=== PATIENT | male | born 1935 | race Caucasian/White ===

== ENCOUNTER → 2016-11-16 | Outpatient (CLI) | payer MEDICARE, OTHER ==
[~2016-11-16] MED LIST: ASPI81CH CHEW
[2016-11-16 11:16] LABS: HEMATOCRIT 39.8 % (39.0-51.0); MEAN CELL VOLUME 91.5 FL (80.0-100.0); MEAN CORPUSCULAR HGB CONC 34.9 % (32.0-36.0); PLATELET COUNT 136 TH/MM3 (150-450); RED BLOOD COUNT 4.35 MIL/MM3 (4.50-5.90); REVIEW FLAG FINAL; WHITE BLOOD COUNT 6.2 TH/MM3 (4.0-11.0)
--- NOTE | 2016-11-17 22:23 | EKG ---
Date Performed: 11/16/2016 Time Performed: 11:02:14 PTAGE: 81 years EKG: Sinus rhythm . ST junctional depression is nonspecific Since previous tracing, no significant change noted Borderl ine ECG PREVIOUS TRACING : 04/06/2013 11.22 DOCTOR: Kathi Blue Interpretating Date/Time 11/17/2016 22:20:05
== END ==
LOC: PHPRE 10:11
PROVIDERS: ATTEND Ophthalmology
DX: Z01.810 Encounter for preprocedural cardiovascular examination (principal); Z01.812 Encounter for preprocedural laboratory examination; H25.811 Combined forms of age-related cataract, right eye; R94.31 Abnormal electrocardiogram [ECG] [EKG]
CPT/HCPCS: 36415; 85027; 93005

== ENCOUNTER → 2016-12-07 | Day surgery (SDC) | payer MEDICARE, OTHER ==
--- NOTE | 2016-11-26 17:17 | MH ---
Cc: DESTINY THAKUR DATE OF ADMISSION: 12/07/2016 ADMISSION DIAGNOSIS Cataract right eye. HISTORY OF PRESENT ILLNESS This 81-year-old white male is coming through [facility] for the purpose of a lens extraction of the right eye with intraocular lens implant under local anesthesia. He has noticed decreasing visual acuity interfering with his daily activities and elected to have the above procedure. His best corrected visual acuity in room light is less than 2200 in the right eye and 20/70 -1 in the left. PAST MEDICAL HISTORY Patient denies hypertension, diabetes or other medical illness. PAST SURGICAL HISTORY: Surgical procedures in the past include colon cancer surgery and bladder cancer surgery. DAILY MEDICATIONS medications include low-dose Aspirin. ALLERGIES NO KNOWN DRUG ALLERGIES SOCIAL HISTORY The patient quit smoking in 1974 but had smoked a half-a-pack per day for 20 years and has two alcoholic beverages a day. FAMILY HISTORY: Family history is positive for mother and brother with glaucoma and cataract. REVIEW OF SYSTEMS: HEAD: Patient denies severe headaches, dizziness or recent head injury. EARS: Patient denies hearing loss, ear pain, discharge or ringing in the ears. NOSE: Patient denies nasal discharge, obstruction or frequent colds. MOUTH AND THROAT: Patient denies soreness of the mouth or tongue, bleeding gums, trouble swallowing, changes in voice or sore throat. NECK: Patient denies neck pain or swelling, limitation of neck movement or neck injury. CARDIOPULMONARY SYSTEM: Patient denies shortness of breath, orthopnea, chronic cough, sputum production, hemoptysis, chest pain, wheezing, palpitations or light-headedness. GI SYSTEM: Patient denies poor appetite, nausea, vomiting, abdominal pain, ulcers, hemorrhoids or change in bowel habits. SYSTEM: The patient has no bladder, has a bag for collection of urine. NERVOUS SYSTEM: Patient denies convulsions, vertigo, stroke, numbness or weakness. PHYSICAL EXAMINATION VITAL SIGNS: Blood pressure is 140/88, pulse 84, respirations 20. HEAD, EYES, EARS, NOSE, AND THROAT: Head: Normocephalic, atraumatic. Nose: Without rhinorrhea. Throat clear. NECK: Supple. CHEST: Clear. HEART: Regular rhythm. ABDOMEN: Without tenderness. EXTREMITIES: Without edema. NEUROLOGIC: Within normal limits. PSYCHIATRIC: Mental status within normal limits. OCULAR EXAMINATION The patient's best corrected visual acuity is passed 20 over the last and 20/200 in the right eye and 20/70 -1 in the left eye in room light. Visual rae are full to confrontation testing. Extraocular muscle exam reveals full versions with orthophoria at distance and near. Pupils are 1 mm equal, round, reactive to light without afferent defect. Anterior segment examination reveals nuclear sclerotic and cortical cataracts bilaterally. Intraocular pressure is 16 in the right eye and 17 in the left by applanation tonometry. Dilated fundus exam revealed sharp disk with cup-to-disk ratio of 0.3 bilaterally. The macula has occasional drusen present. A posterior vitreous detachment is present bilaterally. There are myelinated fibers at the inferior pole of the optic nerve IMPRESSION 1. Bilateral cataracts. 2. Posterior vitreous detachment both eyes. 3. 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 PLAN: The plan is lens extraction of the right eye with intraocular lens implant under local anesthesia through [facility]. Iris retractors will be used in this patient whose pupil does not dilate well. The patient has been cleared medically. He has been counseled as to the risks, benefits and alternatives and elected to proceed. I feel that cataract surgery will improve the quality of life and activities of daily living in this patient. MD CHRISTINA Neumann/tomer /4:22 PM /4:34 PM
[~2016-12-07] VITALS: Ht 180.3 cm; Wt 86.5 kg
[~2016-12-07] MED LIST changes: +ACETYLCHOLINE CHL OPHT SOLN 1:100 2 ML VIAL ONE; +CYCLOPENTOLATE HCL 1% OPHT SOLN 2 ML BTL ONE; +DICLOFENAC SOD 0.1% OPHT SOLN 2.5 ML BTL ONE; +EPINEPHrine HCL (1:1000) 1 MG/ML VIAL ONE; +GATIFLOXACIN 0.5% OPHT SOLN 2.5 ML BTL ONE; +HYALURONIDASE/LIDOCAINE/BUPIVACAINE 6 ML SYR ONE; +PHENYLEPHRINE HCL 2.5% OPTH SOLN 2 ML BTL ONE; +PROPARACAINE HCL 0.5% OPHT SOLN 15 ML BTL ONE; +PROPOFOL 200 MG/20 ML AMP ONE; +SODIUM CHLORID 0.9% 500 ML INJ 500 ML ONE; +TROPICAMIDE 1% OPHT SOLN 15 ML BTL ONE; +VISCOAT OPHT IRRIG SOLN 0.75 ML SYRINGE RIGHT EYE ONE
[2016-12-07 07:43] VITALS: BP 174/99; PULSE 90; RESP 18; TEMP 97.9; O2SAT 95
[2016-12-07 07:55] VITALS: PULSE 90
[2016-12-07 08:20] VITALS: PULSE 85
[2016-12-07] MEDS: PILOCARPINE HCL 2% OPHT SOLN 15 ML BTL ONE ×2 (09:22→09:55)
[2016-12-07] MEDS: TOBRAMYCIN/DEXAMETHASONE OPTH OINT 3.5 GM TUBE ONE ×2 (09:23→09:55)
--- NOTE | 2016-12-07 10:29 | MP ---
cc: DESTINY TADEO DATE December 07, 2016 PREOPERATIVE DIAGNOSIS: Cataract right eye. POSTOPERATIVE DIAGNOSIS: Cataract right eye. OPERATION: Extracapsular cataract extraction with posterior chamber intraocular lens implant by phacoemulsification, right eye. SURGEON: Destiny Tadeo M.D. ANESTHESIA: Local. COMPLICATIONS: None. INDICATIONS: See history and physical previously dictated. OPERATIVE PROCEDURE: The patient had adequate retrobulbar and eyelid blocks administered in the holding area and was brought to the operating room. The right eye was prepped and draped in the usual sterile ophthalmic manner. A lid speculum was inserted in the right eye. A 4-0 silk bridle suture was placed through the conjunctiva near the superior rectus muscle and it was tagged to the drape. A fornix-based conjunctival flap was prepared spanning approximately 5 mm in width. Hemostasis was obtained with wet-field cautery. A 3.5 mm groove was made 1 mm from the limbus and dissected up to the limbus in the form of a scleral pocket incision. A stab incision was then made at the 2 o'clock position. Viscoelastic was injected into the anterior chamber. In order to maintain an adequately dilated pupil, it was elected to use iris retractors in this case. Stab incisions were made at the 1 o'clock, 3 o'clock, 5 o'clock, 8 o'clock and 10 o'clock positions. Iris retractors were then inserted through the stab incisions in the peripheral cornea and positioned to enlarge the size of the pupil. The anterior chamber was entered with a 2.75 mm keratome through the scleral pocket incision. A 360 degree continuous curvilinear capsulorrhexis was then performed. Hydrodissection was utilized to divide the nucleus into inner and outer components and to separate the cortex from the capsule. Phacoemulsification was then utilized to remove the nucleus. The outer nuclear layer was removed with irrigation and aspiration and short bursts of ultrasound as necessary. The cortex was removed with the irrigation-aspiration handpiece. The posterior capsule was polished with the capsule polisher. Viscoelastic was injected into the capsular bag. The intraocular lens was inspected and found to be in good condition. The lens utilized was an Gideon model SA60AT with a power of +22.5 diopters. The lens was inserted into the capsular bag. The five iris retractors were removed. The viscoelastic in the anterior chamber was then removed with the irrigation-aspiration hand piece. Viscoelastic was also removed from beneath the intraocular lens. The anterior chamber was filled with Miochol-E through the stab incision and pressurized. The wound was checked for leaks at this pressure and normalized pressure and there were none. The 4-0 bridle suture was removed. The conjunctival flap was brought down over the wound and secured with cautery. Pilocarpine 2% eye drops were instilled topically. The lid speculum was removed. TobraDex ophthalmic ointment was applied. The eye was double patched and shielded. The patient tolerated the procedure well and left the Operating Room in satisfactory condition. MD CHRISTINA Neumann/CARIDAD /10:07 AM /10:27 AM
[2016-12-07 10:40] VITALS: BP 148/82; PULSE 87; RESP 16; TEMP 98; O2SAT 99
== END | disposition home or self-care (01) ==
LOC: PHSDC 07:06
PROVIDERS: ATTEND Ophthalmology
DX: H26.9 Unspecified cataract (principal); H43.813 Vitreous degeneration, bilateral; Z85.038 Personal history of other malignant neoplasm of large intestine; Z85.51 Personal history of malignant neoplasm of bladder; Z87.891 Personal history of nicotine dependence
CPT/HCPCS: 00142; 66984; J0171; J7040; V2632

== ENCOUNTER → 2017-01-11 | Outpatient (CLI) | payer MEDICARE, OTHER ==
[~2017-01-11] MED LIST changes: -ACETYLCHOLINE CHL OPHT SOLN 1:100 2 ML VIAL ONE; -CYCLOPENTOLATE HCL 1% OPHT SOLN 2 ML BTL ONE; -DICLOFENAC SOD 0.1% OPHT SOLN 2.5 ML BTL ONE; -EPINEPHrine HCL (1:1000) 1 MG/ML VIAL ONE; -GATIFLOXACIN 0.5% OPHT SOLN 2.5 ML BTL ONE; -HYALURONIDASE/LIDOCAINE/BUPIVACAINE 6 ML SYR ONE; -PHENYLEPHRINE HCL 2.5% OPTH SOLN 2 ML BTL ONE; -PROPARACAINE HCL 0.5% OPHT SOLN 15 ML BTL ONE; -PROPOFOL 200 MG/20 ML AMP ONE; -SODIUM CHLORID 0.9% 500 ML INJ 500 ML ONE; -TROPICAMIDE 1% OPHT SOLN 15 ML BTL ONE; -VISCOAT OPHT IRRIG SOLN 0.75 ML SYRINGE RIGHT EYE ONE
[2017-01-11 10:32] LABS: AUTOMATED NEUTROPHIL # 4.8 TH/MM3 (1.8-7.7); BASOPHIL % 0.3 % (0.0-2.0); EOSINOPHIL % 0.6 % (0.0-4.0); HEMATOCRIT 41.4 % (39.0-51.0); HEMO FLAGS DIFF FINAL; LYMPH % 18.3 % (9.0-44.0); LYMPHOCYTE # 1.2 TH/MM3 (1.0-4.8); MEAN CELL VOLUME 93.2 FL (80.0-100.0); MEAN CORPUSCULAR HEMOGLOBIN 31.5 PG (27.0-34.0); MEAN CORPUSCULAR HGB CONC 33.8 % (32.0-36.0); MONO % 6.9 % (0.0-8.0); NEUT % 73.9 % (16.0-70.0); PLATELET COUNT 118 TH/MM3 (150-450); RED BLOOD COUNT 4.44 MIL/MM3 (4.50-5.90); RED CELL DISTRIBUTION WIDTH 13.6 % (11.6-17.2); WHITE BLOOD COUNT 6.4 TH/MM3 (4.0-11.0)
== END ==
LOC: PHPRE 09:43
PROVIDERS: ATTEND Ophthalmology
DX: Z01.812 Encounter for preprocedural laboratory examination (principal); H26.9 Unspecified cataract
CPT/HCPCS: 85025

== ENCOUNTER → 2017-01-25 | Day surgery (SDC) | payer MEDICARE, OTHER ==
--- NOTE | 2017-01-19 13:44 | MH ---
cc: DESTINY THAKUR Corrected Copy: 01/21/2017 DATE OF ADMISSION: 01/25/2017 ADMITTING DIAGNOSIS: Cataract left eye. HISTORY OF PRESENT ILLNESS This 81-year-old white male is coming through [facility] for the purpose of a lens extraction of the left eye with intraocular lens implant under local anesthesia. He had a similar procedure in November of this year and did well postoperatively and is now coming through for the left eye. His best corrected visual acuity is 20/25 -1 in the right eye and 20/70 -1 in the left eye in room light. PAST MEDICAL HISTORY The patient has a history without general medical problems. The patient denies hypertension and diabetes. PAST SURGICAL HISTORY Includes colon cancer surgery and bladder cancer surgery. MEDICATIONS He has a daily medication of low-dose aspirin. ALLERGIES He denies medical allergies. No known allergies. SOCIAL HISTORY The patient quit smoking in 1974 but did smoke half a pack per day of cigarettes for 20 years, and has two alcoholic beverages a day. FAMILY HISTORY Is positive for mother and brother with glaucoma and cataracts. REVIEW OF SYSTEMS: HEAD: Patient denies severe headaches, dizziness or recent head injury. EARS: Patient denies hearing loss, ear pain, discharge or ringing in the ears. NOSE: Patient denies nasal discharge, obstruction or frequent colds. MOUTH AND THROAT: Patient denies soreness of the mouth or tongue, bleeding gums, trouble swallowing, changes in voice or sore throat. NECK: Patient denies neck pain or swelling, limitation of neck movement or neck injury. CARDIOPULMONARY SYSTEM: Patient denies shortness of breath, orthopnea, chronic cough, sputum production, hemoptysis, chest pain, wheezing, palpitations or light-headedness. GI SYSTEM: Patient denies poor appetite, nausea, vomiting, abdominal pain, ulcers, hemorrhoids or change in bowel habits. SYSTEM: The patient has no bladder and he has a bag for the system. NERVOUS SYSTEM: Patient denies convulsions, vertigo, stroke, numbness or weakness. The rest of the review of systems is negative. PHYSICAL EXAMINATION VITAL SIGNS: Blood pressure is 132/80, pulse 76, respirations 24. HEAD, EARS, NOSE, AND THROAT: Head: Normocephalic, atraumatic. Nose: Without rhinorrhea. Throat clear. NECK: Supple. CHEST: Clear. HEART: Regular rhythm. ABDOMEN: Without tenderness. EXTREMITIES: Without edema. NEUROLOGIC: Within normal limits. PSYCHIATRIC: Mental status within normal limits. GENITOURINARY: As mentioned she has a bag for urinating EYES: On eye exam the patient's best corrected visual acuity is 20/25 -1 in the right eye 20/70 -1 in the left eye in room light. Visual rae are full to confrontation testing. Extraocular muscle exam reveals full versions with orthophoria at distance and near. Pupils are 2.5 mm in the right eye, 1 mm in the left round, reactive to light without afferent defect. Anterior segment examination reveals a posterior chamber intraocular lens in place in the right eye and nuclear sclerotic and cortical cataract changes in the left. Intraocular pressures 20 in the right and 23 in the left by applanation tonometry. Dilated fundus exam revealed sharp discs with cup-to-disc ratio of 0.3 bilaterally. There are myelinated nerve fibers at the inferior pole of the right optic nerve head. There is occasional drusen in the macula and a posterior vitreous detachment is present bilaterally. IMPRESSION 1. Cataract left eye. 2. Pseudophakia right eye. 3. Posterior vitreous detachment both eyes. 4. Myelinated nerve fibers inferior pole of the right optic nerve head. PLAN Lens extraction of the left eye with intraocular lens implant under local anesthesia through [facility]. Iris retractors will be used in this case as the patient has very small pupils. The patient has been counseled as to the risks, benefits and alternatives and elected to proceed. I feel that cataract surgery will improve the quality of life and activities of daily living in this patient. MD CHRISTINA Neumann/tomer /11:40 AM /12:04 PM
[~2017-01-25] VITALS: Ht 180.3 cm; Wt 86.5 kg
[~2017-01-25] MED LIST changes: +ACETYLCHOLINE CHL OPHT SOLN 1:100 2 ML VIAL ONE; +CYCLOPENTOLATE HCL 1% OPHT SOLN 2 ML BTL ONE; +DICLOFENAC SOD 0.1% OPHT SOLN 2.5 ML BTL ONE; +EPINEPHrine HCL (1:1000) 1 MG/ML VIAL ONE; +GATIFLOXACIN 0.5% OPHT SOLN 2.5 ML BTL ONE; +HYALURONIDASE/LIDOCAINE/BUPIVACAINE 4.5 ML SYR ONE; +HYALURONIDASE/LIDOCAINE/BUPIVACAINE 6 ML SYR ONE; +PHENYLEPHRINE HCL 2.5% OPTH SOLN 2 ML BTL ONE; +PILOCARPINE HCL 2% OPHT SOLN 15 ML BTL ONE; +PROPARACAINE HCL 0.5% OPHT SOLN 15 ML BTL ONE; +PROPOFOL 200 MG/20 ML AMP ONE; +SODIUM CHLORID 0.9% 500 ML INJ 500 ML ONE; +TOBRAMYCIN/DEXAMETHASONE OPTH OINT 3.5 GM TUBE ONE; +TROPICAMIDE 1% OPHT SOLN 15 ML BTL ONE; +VISCOAT OPHT IRRIG SOLN 0.75 ML SYRINGE LEFT EYE ONE; +acetaZOLAMIDE SEQUELS 500 MG SUSTAINED RELEASE CAP ONE
[2017-01-25 06:30] VITALS: BP 173/94; PULSE 87; RESP 16; TEMP 98.2; O2SAT 96
[2017-01-25 06:35] VITALS: PULSE 87
[2017-01-25 07:00] VITALS: PULSE 73
[2017-01-25 08:35] VITALS: TEMP 98
[2017-01-25 09:20] VITALS: BP 151/71; PULSE 68; RESP 16; O2SAT 98
--- NOTE | 2017-01-25 09:51 | MP ---
cc: DESTINY TADEO DATE OF SURGERY: January 25, 2017 PREOPERATIVE DIAGNOSIS: Cataract left eye. POSTOPERATIVE DIAGNOSIS: Cataract left eye. OPERATION: Extracapsular cataract extraction with posterior chamber intraocular lens implant by phacoemulsification, left eye. SURGEON: Destiny Tadeo M.D. ANESTHESIA: Local. COMPLICATIONS: None. INDICATIONS: See history and physical previously dictated. OPERATIVE PROCEDURE: The patient had adequate retrobulbar and eyelid blocks administered in the holding area and was brought to the operating room. The left eye was prepped and draped in the usual sterile ophthalmic manner. A lid speculum was inserted in the left eye. A 4-0 silk bridle suture was placed through the conjunctiva near the superior rectus muscle and it was tagged to the drape. A fornix-based conjunctival flap was prepared spanning approximately 5 mm in width. Hemostasis was obtained with wet-field cautery. A 3.5 mm groove was made 1 mm from the limbus and dissected up to the limbus in the form of a scleral pocket incision. A stab incision was then made at the 2 o'clock position. Viscoelastic was injected into the anterior chamber. In order to maintain an adequately dilated pupil, it was elected to use iris retractors in this case. Stab incisions were made at the 1 o'clock, 3 o'clock, 5 o'clock, 8 o'clock and 10 o'clock positions. Iris retractors were then inserted through the stab incisions in the peripheral cornea and positioned to enlarge the size of the pupil. The anterior chamber was entered with a 2.75 mm keratome through the scleral pocket incision. A 360 degree continuous curvilinear capsulorrhexis was then performed. Hydrodissection was utilized to divide the nucleus into inner and outer components and to separate the cortex from the capsule. Phacoemulsification was then utilized to remove the nucleus. The outer nuclear layer was removed with irrigation and aspiration and short bursts of ultrasound as necessary. The cortex was removed with the irrigation-aspiration handpiece. The posterior capsule was polished with the capsule polisher. Viscoelastic was injected into the capsular bag. The intraocular lens was inspected and found to be in good condition. The lens utilized was an Gideon, model SA60AT with a power of +22.5 diopters. The lens was inserted into the capsular bag. The five iris retractors were removed. The viscoelastic in the anterior chamber was then removed with the irrigation-aspiration hand piece. Viscoelastic was also removed from beneath the intraocular lens. The anterior chamber was filled with Miochol-E through the stab incision and pressurized. The wound was checked for leaks at this pressure and normalized pressure and there were none. The 4-0 bridle suture was removed. The conjunctival flap was brought down over the wound and secured with cautery. Pilocarpine 2% eye drops were instilled topically. The lid speculum was removed. TobraDex ophthalmic ointment was applied. The eye was double patched and shielded. The patient tolerated the procedure well and left the Operating Room in satisfactory condition. MD CHRISTINA Neumann/CARIDAD /8:58 AM /9:48 AM
== END | disposition home or self-care (01) ==
LOC: PHSDC 06:06
PROVIDERS: ATTEND Ophthalmology
DX: H26.9 Unspecified cataract (principal); H43.813 Vitreous degeneration, bilateral; H27.8 Other specified disorders of lens; I10 Essential (primary) hypertension; Z85.038 Personal history of other malignant neoplasm of large intestine; Z85.51 Personal history of malignant neoplasm of bladder; Z87.891 Personal history of nicotine dependence; Z79.82 Long term (current) use of aspirin
CPT/HCPCS: 66984; J0171; J7040; V2632